=== PATIENT | female | born 1940 | race Caucasian/White ===

== ENCOUNTER 2023-11-19 00:07 | Emergency (ER) | payer OTHER, BC ==
[2023-11-19 00:23] VITALS: TEMP 98.1; BMI 18.8
[2023-11-19 00:31] VITALS: BP 175/87; PULSE 79; RESP 19
== END 2023-11-19 02:20 | disposition home or self-care (01) ==
LOC: JER 00:07
DX: Z04.3 Encounter for examination and observation following other accident (principal); W01.198A Fall on same level from slipping, tripping and stumbling with subsequent striking against other object, initial encounter
CPT/HCPCS: 70450-TC; 72125-TC; 99284-25

== ENCOUNTER 2023-11-25 03:51 | Inpatient (IN) | payer OTHER, BC ==
[2023-11-25 04:09] VITALS: BMI 21.2
[2023-11-25] MEDS ORDERED: ACETAMINOPHEN INJECTION 100 ML IVPB ONE (04:23)
[2023-11-25] MEDS ORDERED: ONDANSETRON 4 MG/2 ML VIAL ONE (04:23)
[2023-11-25] MEDS: SODIUM CHLORIDE 0.9% 500 ML INFUS.BAG IV ONE (04:34)
[2023-11-25] MEDS: ACETAMINOPHEN 1000 MG/100 ML BAG IVPB ONE (04:35)
[2023-11-25] MEDS: ONDANSETRON 4 MG/2 ML VIAL IVPUSH ONE (04:35)
[2023-11-25] MEDS ORDERED: FAMOTIDINE 20 MG/50 ML IVPB 20 MG/50 ML MG IVPB ONE (04:40)
[2023-11-25 04:45] LABS: HEMATOCRIT 38.7 % (32.4-45.2); MCH 31.1 pg (25.7-33.7); MCHC 33.6 g/dl (32.0-36.0); MEAN CELL VOLUME 92.7 fl (80-96); RBC 4.17 M/mm3 (3.60-5.2); RDW 18.4 % (11.6-15.6); WHITE BLOOD COUNT 19.6 K/mm3 (4.0-10.0)
[2023-11-25 04:47] LABS: INR 1.14 (0.83-1.09); PROTHROMBIN TIME (PATIENT) 12.8 SEC (9.7-13.0)
[2023-11-25 04:50] LABS: ACTIVATED PTT 28.7 SECONDS (25.2-36.5)
[2023-11-25 04:59] LABS: POTASSIUM 4.9 mmol/L (3.5-5.1)
[2023-11-25] MEDS: FAMOTIDINE 20 MG/50 ML IVPB 20 MG/50 ML MG IVPB ONE (04:59)
[2023-11-25 05:01] LABS: CALCIUM 9.5 mg/dL (8.5-10.1)
[2023-11-25 05:02] LABS: ALBUMIN 4.2 g/dl (3.4-5.0); BLOOD UREA NITROGEN 26.8 mg/dL (7-18); MAGNESIUM 2.4 mg/dL (1.8-2.4)
[2023-11-25 05:05] LABS: CREATININE 1.1 mg/dL (0.55-1.3)
[2023-11-25 05:06] LABS: BILIRUBIN,TOTAL 0.4 mg/dL (0.2-1); TOT PROT 7.1 g/dl (6.4-8.2)
[2023-11-25 06:41] LABS: EPI CELLS 7 /uL (0-25.1); HYALINE CASTS 0 /uL (0-3.1); URINE APPEARANCE CLOUDY; URINE BACTERIA >9,000 /uL (0-1359); URINE BILIRUBIN NEGATIVE (NEGATIVE); URINE COLOR YELLOW; URINE GLUCOSE (UA) NEGATIVE (NEGATIVE); URINE KETONE NEGATIVE (NEGATIVE); URINE LEUK ESTERASE TRACE (NEGATIVE); URINE NITRITE NEGATIVE (NEGATIVE); URINE PROTEIN 1+ (NEGATIVE); URINE UROBILINOGEN 0.2 mg/dL (0.2-1.0); URINE WBC 14 /uL (0-25.8)
[2023-11-25 07:16] LABS: ANISOCYTOSIS 1+; MACROCYTOSIS 0
[2023-11-25] MEDS ORDERED: ACETAMINOPHEN 1000 MG/100 ML BAG IVPB PRN (11:27)
[2023-11-25] MEDS ORDERED: METOPROLOL TARTRATE 25 MG TABLET (FP) ONE (11:42)
[2023-11-25] MEDS ORDERED: PANTOPRAZOLE 40 MG TABLET PO ONE (11:42)
[2023-11-25] MEDS ORDERED: APIXABAN 2.5 MG TABLET ONE (11:43)
[2023-11-25] MEDS ORDERED: CEFTRIAXONE 1 GM/50 ML BAG ONE (11:43)
[2023-11-25] MEDS ORDERED: LEVOTHYROXINE NA 25 MCG TABLET (FP) ONE (11:43)
[2023-11-25] MEDS: FOLIC ACID 1 MG TABLET (FP) PO SCH (11:53)
[2023-11-25] MEDS: PANTOPRAZOLE SODIUM 40 MG VIAL IVPUSH SCH (11:53)
[2023-11-25] MEDS: APIXABAN 2.5 MG TABLET PO SCH (11:53)
[2023-11-25] MEDS: CEFTRIAXONE 1,000 MG in DEXTROSE 5%-WATER - 50 ML IVPB ONE (11:53)
[2023-11-25] MEDS: METOPROLOL TARTRATE 25 MG TABLET (FP) PO SCH (11:53)
[2023-11-25] MEDS: LEVOTHYROXINE NA 25 MCG TABLET (FP) PO SCH (11:54)
[2023-11-25] MEDS: D5-1/2NS+10 MEQ KCL - 10 MEQ/1,000 ML INFUS.BAG IV SCH ×3 (12:32→18:18)
[2023-11-25] MEDS ORDERED: ONDANSETRON 4 MG/2 ML VIAL IVPUSH PRN ×2 (12:47→12:49)
[2023-11-25] MEDS ORDERED: hydrALAZINE HCL 50 MG TABLET (FP) ONE (13:10)
[2023-11-25] MEDS: hydrALAZINE HCL 25 MG TABLET (FP) PO ONE (13:16)
[2023-11-25] MEDS: METOPROLOL TARTRATE 25 MG TABLET (FP) PO ONE (14:51)
[2023-11-25] MEDS: hydrALAZINE HCL 25 MG TABLET (FP) PO SCH (14:51)
[2023-11-25] MEDS: APIXABAN 5 MG TABLET PO SCH (21:58)
[2023-11-25] MEDS: METOPROLOL TARTRATE 50 MG TABLET (FP) PO SCH (21:58)
[2023-11-25] MEDS: SACUBITRIL/VALSARTAN 49 MG-51 MG TABLET PO SCH (21:58)
[2023-11-25] MEDS ORDERED: SACUBITRIL/VALSARTAN 24 MG-26 MG TABLET PO SCH (22:00)
[2023-11-26] MEDS: MELATONIN 5 MG TABLETS PO ONE (01:43)
[2023-11-26 08:02] LABS: BASO % 0.3 % (0-2.0); EOS % 0.2 % (0-4.5); HEMATOCRIT 38.3 % (32.4-45.2); HEMOGLOBIN 12.7 GM/dL (10.7-15.3); MCH 30.7 pg (25.7-33.7); MCHC 33.1 g/dl (32.0-36.0); MEAN CELL VOLUME 92.6 fl (80-96); MEAN PLT VOLUME 7.1 fl (7.5-11.1); MONO % 9.9 % (3.8-10.2); NEUT % 86.6 % (42.8-82.8); PLATELET COUNT 301 10^3/uL (134-434); RBC 4.13 M/mm3 (3.60-5.2); RDW 17.8 % (11.6-15.6); WHITE BLOOD COUNT 8.5 K/mm3 (4.0-10.0)
[2023-11-26 08:13] LABS: POTASSIUM 3.4 mmol/L (3.5-5.1)
[2023-11-26] MEDS: D5-1/2NS+10 MEQ KCL - 10 MEQ/1,000 ML INFUS.BAG IV SCH (08:58)
[2023-11-26] MEDS: KCL 10 MEQ IVPB 10 MEQ/100 ML INFUS.BAG IVPB SCH (09:03)
[2023-11-26] MEDS ORDERED: KCL 10 MEQ IVPB 10 MEQ/100 ML INFUS.BAG IVPB SCH (09:15)
[2023-11-26 09:47] LABS: BLOOD UREA NITROGEN 19.5 mg/dL (7-18); CALCIUM 8.4 mg/dL (8.5-10.1); CREATININE 0.8 mg/dL (0.55-1.3)
[2023-11-26] MEDS: CEFTRIAXONE 1 GM in DEXTROSE 5%-WATER - 50 ML IVPB SCH (10:07)
[2023-11-26] MEDS: DIGOXIN 0.125 MG TABLET PO SCH (10:08)
[2023-11-26] MEDS: LORazepam 2 MG/ML SDV VIAL IVPUSH PRN ×2 (17:49→23:38)
[2023-11-27] MEDS: PANTOPRAZOLE SODIUM 40 MG VIAL IVPUSH SCH (09:45)
[2023-11-27 10:03] LABS: BASO % 0.2 % (0-2.0); EOS % 0.1 % (0-4.5); HEMATOCRIT 37.6 % (32.4-45.2); HEMOGLOBIN 12.5 GM/dL (10.7-15.3); LYMPH % 7.9 % (8-40); MCH 31.1 pg (25.7-33.7); MCHC 33.3 g/dl (32.0-36.0); MEAN CELL VOLUME 93.4 fl (80-96); NEUT % 76.8 % (42.8-82.8); PLATELET COUNT 285 10^3/uL (134-434); RBC 4.03 M/mm3 (3.60-5.2); RDW 17.7 % (11.6-15.6)
[2023-11-27 10:24] LABS: POTASSIUM 3.3 mmol/L (3.5-5.1)
[2023-11-27 10:30] LABS: CALCIUM 8.9 mg/dL (8.5-10.1)
[2023-11-27 10:31] LABS: BLOOD UREA NITROGEN 20.2 mg/dL (7-18)
[2023-11-27 10:34] LABS: CREATININE 1.1 mg/dL (0.55-1.3)
[2023-11-28 08:37] LABS: BASO % 0.7 % (0-2.0); EOS % 1.1 % (0-4.5); HEMATOCRIT 40.2 % (32.4-45.2); HEMOGLOBIN 13.7 GM/dL (10.7-15.3); LYMPH % 13.1 % (8-40); MCH 31.3 pg (25.7-33.7); MEAN PLT VOLUME 7.2 fl (7.5-11.1); MONO % 13.4 % (3.8-10.2); NEUT % 71.7 % (42.8-82.8); PLATELET COUNT 327 10^3/uL (134-434); RBC 4.37 M/mm3 (3.60-5.2); RDW 18.3 % (11.6-15.6); WHITE BLOOD COUNT 7.2 K/mm3 (4.0-10.0)
[2023-11-28 08:55] LABS: POTASSIUM 3.3 mmol/L (3.5-5.1)
[2023-11-28 09:05] LABS: CALCIUM 8.5 mg/dL (8.5-10.1)
[2023-11-28 09:06] LABS: BLOOD UREA NITROGEN 14.5 mg/dL (7-18)
[2023-11-28 09:09] LABS: CREATININE 0.8 mg/dL (0.55-1.3)
[2023-11-28] MEDS: CEFUROXIME AXETIL 250 MG TABLET PO SCH (12:41)
[2023-11-28] MEDS: KCL 10 MEQ IVPB 10 MEQ/100 ML INFUS.BAG IVPB SCH (12:42)
[2023-11-29 10:25] LABS: BASO % 0.4 % (0-2.0); EOS % 0.8 % (0-4.5); HEMOGLOBIN 14.1 GM/dL (10.7-15.3); LYMPH % 9.1 % (8-40); MCH 30.8 pg (25.7-33.7); MCHC 32.7 g/dl (32.0-36.0); MEAN CELL VOLUME 94.1 fl (80-96); MEAN PLT VOLUME 6.9 fl (7.5-11.1); MONO % 9.9 % (3.8-10.2); NEUT % 79.8 % (42.8-82.8); PLATELET COUNT 332 10^3/uL (134-434); RBC 4.57 M/mm3 (3.60-5.2); WHITE BLOOD COUNT 10.4 K/mm3 (4.0-10.0)
[2023-11-29 10:39] LABS: POTASSIUM 3.5 mmol/L (3.5-5.1)
[2023-11-29 10:41] LABS: BLOOD UREA NITROGEN 9.6 mg/dL (7-18); CALCIUM 8.7 mg/dL (8.5-10.1)
[2023-11-29 10:45] LABS: CREATININE 0.8 mg/dL (0.55-1.3)
[2023-11-29] MEDS: POTASSIUM CHLORIDE TABS 10 MEQ TABLET.ER (FP) PO ONE (10:45)
[2023-11-29] MEDS: PANTOPRAZOLE 40 MG TABLET PO SCH (10:45)
[2023-11-29] MEDS: APIXABAN 5 MG TABLET PO SCH (22:23)
[2023-11-30 09:17] LABS: BASO % 0.7 % (0-2.0); HEMATOCRIT 42.9 % (32.4-45.2); HEMOGLOBIN 14.3 GM/dL (10.7-15.3); LYMPH % 11.2 % (8-40); MCHC 33.4 g/dl (32.0-36.0); MEAN CELL VOLUME 92.8 fl (80-96); MEAN PLT VOLUME 7.1 fl (7.5-11.1); MONO % 9.5 % (3.8-10.2); NEUT % 77.6 % (42.8-82.8); PLATELET COUNT 354 10^3/uL (134-434); RBC 4.62 M/mm3 (3.60-5.2); RDW 17.5 % (11.6-15.6); WHITE BLOOD COUNT 10.4 K/mm3 (4.0-10.0)
[2023-11-30 09:42] LABS: POTASSIUM 4.1 mmol/L (3.5-5.1)
[2023-11-30 09:49] LABS: CALCIUM 8.9 mg/dL (8.5-10.1)
[2023-11-30 09:55] LABS: CREATININE 0.7 mg/dL (0.55-1.3)
[2023-11-30] MEDS: APIXABAN 5 MG TABLET PO SCH (10:58)
[2023-12-01 09:36] LABS: BASO % 0.9 % (0-2.0); EOS % 0.6 % (0-4.5); HEMATOCRIT 44.3 % (32.4-45.2); HEMOGLOBIN 15.1 GM/dL (10.7-15.3); MCH 31.5 pg (25.7-33.7); MCHC 34.1 g/dl (32.0-36.0); MEAN CELL VOLUME 92.5 fl (80-96); MEAN PLT VOLUME 7.1 fl (7.5-11.1); MONO % 8.2 % (3.8-10.2); NEUT % 80.3 % (42.8-82.8); PLATELET COUNT 456 10^3/uL (134-434); RBC 4.79 M/mm3 (3.60-5.2); RDW 17.6 % (11.6-15.6); WHITE BLOOD COUNT 10.9 K/mm3 (4.0-10.0)
[2023-12-01 10:13] LABS: POTASSIUM 4.1 mmol/L (3.5-5.1)
[2023-12-01 10:14] LABS: CALCIUM 9.4 mg/dL (8.5-10.1)
[2023-12-01 10:15] LABS: BLOOD UREA NITROGEN 9.8 mg/dL (7-18)
[2023-12-01 10:18] LABS: CREATININE 0.7 mg/dL (0.55-1.3)
[2023-12-01 16:06] VITALS: BP 106/85; PULSE 102; RESP 18; TEMP 98.1
== END 2023-12-01 15:58 | disposition home or self-care (01) | DRG 689 ==
LOC: JER 03:51 → JERBED 11:06 → J5S 14:17
PROVIDERS: ADMIT Internal Medicine; ATTEND Internal Medicine
DX: N39.0 Urinary tract infection, site not specified (principal); G93.41 Metabolic encephalopathy; R53.2 Functional quadriplegia; I50.22 Chronic systolic (congestive) heart failure; E87.29 Other acidosis; I48.91 Unspecified atrial fibrillation; E03.9 Hypothyroidism, unspecified; R26.81 Unsteadiness on feet; E86.0 Dehydration; M62.81 Muscle weakness (generalized); I25.10 Atherosclerotic heart disease of native coronary artery without angina pectoris; I73.9 Peripheral vascular disease, unspecified; R11.10 Vomiting, unspecified; R19.7 Diarrhea, unspecified; D72.829 Elevated white blood cell count, unspecified; E78.5 Hyperlipidemia, unspecified; I11.0 Hypertensive heart disease with heart failure; B96.20 Unspecified Escherichia coli [E. coli] as the cause of diseases classified elsewhere; Z96.643 Presence of artificial hip joint, bilateral; Z96.653 Presence of artificial knee joint, bilateral
CPT/HCPCS: 0241U-QW; 36415; 70450-TC; 71045-TC-FY; 73562-TC-LT-FY; 74176-TC; 80048; 80053; 80162; 81003; 82962; 83605; 83690; 83735; 84439; 84443; 84484; 85025; 85610; 85651; 85730; 86140; 87040; 87086; 87186; 93005; 93010; 97116-GP; 97161-GP; 99285-25; J0131

== ENCOUNTER 2023-12-17 20:56 | Emergency (ER) | payer OTHER, BC ==
[2023-12-17 21:09] VITALS: BP 118/62; PULSE 79; RESP 20; TEMP 98.1; BMI 27.4
== END 2023-12-18 04:10 | disposition home or self-care (01) ==
LOC: JER 20:56
DX: M25.511 Pain in right shoulder (principal)
CPT/HCPCS: 73030-TC-RT-FY; 99283-25

== ENCOUNTER 2024-01-04 02:42 | Emergency (ER) | payer OTHER, BC ==
[2024-01-04 02:48] VITALS: BMI 19.3
[2024-01-04 06:00] VITALS: RESP 18
[2024-01-04 10:35] VITALS: BP 202/83; PULSE 66; TEMP 98.2
== END 2024-01-04 10:54 | disposition home or self-care (01) ==
LOC: JER 02:42
DX: S40.812A Abrasion of left upper arm, initial encounter (principal); W06.XXXA Fall from bed, initial encounter
CPT/HCPCS: 70450-TC; 72125-TC; 99284-25